=== PATIENT | female | born 1950 | race Caucasian/White ===

== ENCOUNTER 2018-10-22 18:17 | Emergency (ER) | payer OTHER, MEDICAID ==
[~2018-10-22] VITALS: Ht 162.6 cm; Wt 66.7 kg
[2018-10-22 18:32] VITALS: Ht 162.6 cm; Wt 66.7 kg
[2018-10-22 20:23] LABS: BASOPHIL % 0.3 % (0-2); PLATELET COUNT 227 x10^3mcL (130-400); RED CELL DISTRIBUTION WIDTH 12.8 % (11.5-14.5)
[2018-10-22 20:38] LABS: CALCIUM 10.1 mg/dL (8.5-10.1); CHLORIDE SERUM 103 mmol/L (98-107); CREATININE SERUM 0.9 mg/dL (0.6-1.0); GFR1 > 60 mL/min; GLUCOSE SERUM 178 mg/dL (74-106); POTASSIUM SERUM 3.9 mmol/L (3.5-5.1); SODIUM SERUM 142 mmol/L (136-145)
[2018-10-22 20:45] LABS: ALBUMIN 3.9 g/dL (3.4-5.0); ALKALINE PHOSPHATASE 94 U/L (46-116); ALT/SGPT 30 U/L (14-59); AST/SGOT 17 U/L (15-37); BILIRUBIN TOTAL 0.4 mg/dL (0.20-1.00); CHOLESTEROL 183 mg/dL (<200); CHOLESTEROL/HDL RATIO 3.5; HDL CHOLESTEROL 52 mg/dL (40-60); LIPASE 321 IU/L (73-393); TOTAL PROTEIN, SERUM 8.2 g/dL (6.4-8.2); TRIGLYCERIDES 172 mg/dL (<150)
[2018-10-22 20:53] LABS: T3 TOTAL 0.94 ng/mL
[2018-10-22 20:54] LABS: FREE T4 0.99 ng/dL (0.76-1.46); T4(THYROXINE) 9.2 ug/dL (4.7-13.3)
[2018-10-22 20:55] LABS: microscopic required? YES; urine erythrocyte NEGATIVE (NEGATIVE)
[2018-10-22 23:38] VITALS: BP 151/74
== END 2018-10-22 23:38 | disposition home or self-care (01) ==
LOC: ED 18:17
PROVIDERS: Specialist
DX: I10 Essential (primary) hypertension (principal); R00.2 Palpitations; E11.9 Type 2 diabetes mellitus without complications; E78.00 Pure hypercholesterolemia, unspecified; Z98.890 Other specified postprocedural states
CPT/HCPCS: 36415; 83880; 84439; Q0092